=== PATIENT | male | born 1965 | race Two or more races ===

== ENCOUNTER 2020-09-28 09:46 | Day surgery (SDC) | payer OTHER ==
[2020-09-28] VITALS (7 sets, daily range): BP systolic 131–149; BP diastolic 82–96
[~2020-09-28] VITALS: Ht 167.6 cm; Wt 72.6 kg
--- NOTE | 2020-09-28 10:10 | Short Stay Surgery H&P ---
History of Present Illness History of Present Illness Chief Complaint Abdominal pains/heartburn DOROTA Freed is a 54 year old male who was admitted on for Gerd, IBS/abdominal pains Patient History Past Surgeries: (1) History of cervical spinal surgery (2) History of ankle surgery Review of Systems Cardiovascular: Reports: no symptoms Respiratory: Reports: no symptoms Skeletal: Reports: trauma Gastrointestinal: Reports: gastro esophageal reflux disease Genitourinary: Reports: no symptoms Neurologic: Reports: no symptoms Endocrine: Reports: no symptoms Hematologic: Reports: no symptoms Physical Exam Skin: normal HENT: normal Heart: normal Lungs: normal Abdomen: abnormal Extremities: normal Genitourinary: normal Plan Plan of Care Upper GI. endoscopy with biopsy. Preop Interventions None. Summary of Findings See the reports. Attestation Are the patient's medical conditions optimized for surgery? Attestation Response: yes Imelda Zuñiga MD Sep 28, 2020 10:10
--- NOTE | 2020-09-28 10:11 | Pre-Procedure Note/Attestation ---
Pre-Procedure Note/Attestation Complete Prior to Procedure Planned Procedure: left Procedure Narrative: Examination of the upper GI.tract via endoscopy with obtaining biopsies Indications for Procedure Pre-Operative Diagnosis: R/O NSAID induced peptic ulcer/esophagitis/gastritis. Attestation I attest that I discussed the nature of the procedure; its benefits; risks and complications; and alternatives (and the risks and benefits of such alternatives), prior to the procedure, with the patient (or the patient's legal signs sales representative). I attest that, if there was a reasonable possibility of needing a blood transfusion, the patient (or the patient's legal signs sales representative) was given the [facility] standardized written summary, pursuant to the [employer]ar[employer] Blood Safety Act ([place] Health and Safety Code # 1645, as amended). I attest that I re-evaluated the patient just prior to the surgery and that there has been no change in the patient's H&P, except as documented below: Imelda Zuñiga MD Sep 28, 2020 10:11
--- NOTE | 2020-09-28 10:12 | Discharge Instructions ---
Discharge Instructions Discharge Instructions Follow up with: No follow up with this doctor. Call the office for printed report. For Congestive Heart Failure Reminder Report to your physician any weight gain of 5 pounds or more in one week. Imelda Zuñiga MD Sep 28, 2020 10:12
[2020-09-28] MEDS ORDERED: Lidocaine 1% MPF 10mg/ml 5ml ONE (10:30)
[2020-09-28] MEDS ORDERED: LR 1000ml ONE (10:30)
--- NOTE | 2020-09-28 10:58 | Anethesia Preoperative Eval ---
Anesthesia Pre-op PMH/ROS General Date of Evaluation: Sep 28, 2020 Time of Evaluation: 10:35 Anesthesiologist: brendan ASA Score: ASA 2 Mallampati Score Class I : Soft palate, uvula, fauces, pillars visible Class II: Soft palate, uvula, fauces visible Class III: Soft palate, base of uvula visible Class IV: Only hard plate visible Mallampati Classification: Class II Surgeon: Aj Diagnosis: GERD Surgical Procedure: EGD Anesthesia History: none Social History: smoking, current smoker Family History: no anesthesia problems Allergies: Coded Allergies: No Known Allergies (Unverified , 09/28/20) Medications: see eMAR Patient NPO?: Yes NPO Date: Sep 28, 2020 NPO Time: 00:01 Past Medical History Cardiovascular: Denies: HTN, CAD, CO, valve dz, arrhythmia, other Pulmonary: Denies: asthma, COPD, CHRIS, other Gastrointestinal/Genitourinary: Reports: GERD, other - IBS; Denies: CRI, ESRD Neurologic/Psychiatric: Denies: dementia, CVA, depression/anxiety, TIA, other Endocrine: Denies: DM, hypothyroidism, steroids, other HEENT: Denies: cataract (L), cataract (R), glaucoma, CHILKOOT (L), CHILKOOT (R), other Hematology/Immune: Denies: anemia, DVT, bleeding disorder, other Musculoskeletal/Integumentary: Denies: OA, RA, DJD, DDD, edema, other Anesthesia Pre-op Phys. Exam Physician Exam Last Vital Signs Date Time Temp Pulse Resp B/P (MAP) Pulse Ox O2 Delivery O2 Flow Rate FiO2 09/28/20 10:31 Room Air 09/28/20 10:31 98.9 89 18 149/96 100 Constitutional: NAD Neurologic: CN 2-12 intact Cardiovascular: RRR Respiratory: CTA Gastrointestinal: S/NT/ND Airway Exam Mallampati Classification 2 Mallampati Score: Class II MO: full Neck: nomral ROM: full Teeth: broken Dentures: no upper, no lower Anesthesia Pre-op A/P Studies Pre-op Studies: EKG - SR Risk Assessment & Plan Assessment: covid neg Plan: mac Status Change Before Surgery: No Pre-Antibiotics Drug: none Anne Sharpe CRNA Sep 28, 2020 10:58
--- NOTE | 2020-09-28 11:02 | Endoscopy Procedure Note ---
Endoscopy Procedure Note General Indication for Procedure: Abdominal pains/chronic heartburn Procedures Performed: EGD - Moderate gastritis of the fundual area biopsied. Mild duodenitis of the distal bulb , biopsied. Specimen: yes Pt Tolerated Procedure Well: Yes Estimated Blood Loss: none Anesthesia Anesthesiologist: Ms. Grullon, electric golf cart repairer Anesthesia: moderate sedation Medications Medication Given: see anesthesia record Inserted Devices Implant(s) used?: No Quality Quality of Bowel Preparation: Excellent Was there any complications?: No GI Core Measures 50 yrs or older w/o bx or poly: Not Applicable 10yrs. F/U recommended: Not Applicable If not recommended, why?: Imelda Zuñiga MD Sep 28, 2020 11:02
--- NOTE | 2020-09-28 11:09 | Immediate Post-Op Evaluation ---
Immediate Post-Op Evalulation Immediate Post-Op Evalulation Procedure: EGD Date of Evaluation: Sep 28, 2020 Time of Evaluation: 11:09 IV Fluids: 500 Blood Pressure Systolic: 107 Blood Pressure Diastolic: 68 Pulse Rate: 76 Respiratory Rate: 14 O2 Sat by Pulse Oximetry: 98 Temperature (Fahrenheit): 97.4 Nausea: No Vomiting: No Complications none Patient Status: awake, reacts, patent Drug: none Anne Sharpe CRNA Sep 28, 2020 11:09
--- NOTE | 2020-09-28 11:14 | 48 Hour Post Anesthesia Eval ---
Post Anesthesia Evaluation Procedure: EGD Date of Evaluation: Sep 28, 2020 Time of Evaluation: 11:14 Blood Pressure Systolic: 110 0: 50 Pulse Rate: 82 Respiratory Rate: 14 O2 Sat by Pulse Oximetry: 98 Airway: patent Nausea: No Vomiting: No Hydration Status: adequate Cardiopulmonary Status: stable Mental Status/LOC: patient returned to baseline Follow-up Care/Observations: na Post-Anesthesia Complications: none Follow-up care needed: N/A Anne Sharpe [facility] Sep 28, 2020 11:14
--- NOTE | 2020-09-28 14:45 | Pre-op HX & Phy Repo 2 SIG ---
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 Per medical records, the applicant has had injuries at job site going back in two different locations, one in 2012 and the other one in 2017 after which time he was started on multiple medications including nonsteroidal anti-inflammatory agents. The patient at this time complains of having periods of gastroesophageal acid reflux consistent with heartburn, GERD, though he does not have major complain of epigastric pain except occasionally. He denies having any major vomiting or hematemesis, melena, hematochezia, etc. He also denies having any difficulty swallowing. However, he has been experiencing diarrhea intermittently, but denies having any constipation. 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 However, he also denies having any history of past gastritis, peptic ulcer disease or gastrointestinal problems before being injured at job site. PAST MEDICAL HISTORY: Basically, he denies having any major conditions such as high blood pressure, high cholesterol, diabetes, etc. PAST SURGICAL HISTORY: He has undergone the surgery after his accident sometime in December 2017 and also has had history of right ankle surgery, which occurred in [place] in 2019. ALLERGIES: Nonsignificant. HABITS: Occasionally, he smoke cigarettes, but rarely, but does not drink alcohol and does not use illicit drugs. FAMILY HISTORY: Nonsignificant. MEDICATIONS: List of present medications are none except local ointment. PHYSICAL EXAMINATION: GENERAL: Reveals alert, well oriented, very pleasant gentleman, does not seem to be in any acute distress. He looks well developed, well nourished and answers the questions quite properly. VITAL SIGNS: Reveals evidence of temperature 98.6, pulse rate 89 per minute, respiratory rate 18 per minute, blood pressure 149/96, oxygen saturation on room air is 100%. HEENT: Normocephalic. Pupils equal in size and reactive to light and accommodation. No visible jaundice. Buccal cavity, tongue midline, well hydrated. No ulcers. NECK: Supple. No JVD, thyromegaly, or adenopathy. CHEST: Clear to auscultation and percussion. No rales or rhonchi. HEART: S1, S2 normal. Regular rhythm. No gallops or murmur. ABDOMEN: Soft. There is minimal tenderness over the upper part of the abdomen, but there is no organomegaly. No palpable mass. No rebound phenomenon. Bowel sounds are adequately present. EXTREMITIES: Within normal limits except some tenderness over the lower extremities, over the knees and lower back. NEUROLOGIC: Within normal limits. INITIAL PREOPERATIVE IMPRESSION: 1. History of chronic gastroesophageal acid reflux aggravated by side effects of NSAID medications, rule out NSAID-induced gastropathy, peptic ulcer disease, gastritis, duodenitis, esophagitis. 2. History of chronic diarrhea with occasional abdominal pain possibly consistent with underlying irritable bowel syndrome, IBS. 3. Status post cervical and ankle surgeries. RECOMMENDATIONS: At this time, the patient seems to be quite stable to undergo the procedure of upper GI endoscopy for which he has been scheduled. He understands the risks and benefits and will sign the consent. Said Malka Zuñiga DR: ZURI JOB#: [id number] CC:
--- NOTE | 2020-09-28 15:00 | Procedure Note ---
DATE OF PROCEDURE: 09/28/2020 PROCEDURE: Esophagogastroduodenoscopy with biopsy. PREOPERATIVE DIAGNOSES: Abdominal pain, heartburn, history of anti-inflammatory agents intake, rule out peptic ulcer disease, gastritis, duodenitis, esophagitis. POSTOPERATIVE DIAGNOSES: 1. Evidence of minimal amount of bile in the stomach. 2. Moderate gastritis of the fundus, which was biopsied. 3. Mild distal bulbar duodenitis biopsy. MEDICATIONS USED: Per Ms. Sharpe application development specialist. INSTRUMENT: GIF Olympus upper GI video endoscope. DESCRIPTION OF PROCEDURE: The patient after arriving in endoscopy unit was told about risks and benefits of the procedure, which he accepted and signed informed consent. He was then put on the left lateral decubitus position. After adequate IV sedation, the scope was gently passed through the cricopharyngeal area, was lodged into the upper esophagus and gradually advanced towards gastroesophageal junction. The entire length of esophagus was normal. There was no any pathology at GE junction either. No Garcia's or hiatal hernia. At this time, the scope was advanced into the stomach. Gastric cavity was distended with insufflation of air. Immediately, it was seen in the areas of the fundus there was inflammatory process with enlargement of the gastric fold with patchy erythema consistent with moderate gastritis of this section. A couple of biopsies from this area was obtained and subsequently the scope was gradually passed towards the rest of the stomach, which revealed evidence of [id number] inflammatory process consistent with gastritis as well. At this point, the scope was passed through the pylorus and upon entry into the bulb, it was shown that there was mild erythema in the mid and the distal part of the bulb before the next section. This area was also biopsied and subsequently scope was passed into the descending bulb, which revealed normal findings. At this time, the scope was pulled up into the stomach. A retroflexion maneuver was applied, which did not reveal any other pathology . Since there was minimal bleeding from the site of the biopsy, some washing with epinephrine solution was also made, but there was no any major active bleeding at this point. Finally, the scope was pulled out and the procedure was terminated. The patient tolerated the procedure well and left the endoscopy room in a good condition. Said Malka Zuñiga DR: KALI JOB#: [id number] CC:
== END 2020-09-28 11:55 | disposition home or self-care (01) ==
LOC: GAS 09:46
DX: K29.50 Unspecified chronic gastritis without bleeding (principal); R10.9 Unspecified abdominal pain; K29.80 Duodenitis without bleeding; K21.9 Gastro-esophageal reflux disease without esophagitis; F17.210 Nicotine dependence, cigarettes, uncomplicated
CPT/HCPCS: 43239; 94003; J2704; J7120; U0004; 94150